=== PATIENT | female | born 1940 | race Caucasian/White ===

== ENCOUNTER 2016-10-23 12:29 | Observation (INO) | payer OTHER ==
[~2016-10-23] VITALS: Ht 156.2 cm; Wt 53.8 kg
[~2016-10-23 12:29] MED LIST: ASPIRIN325 MG PO; AZITHROMYCIN500 M1 PO; COMBIVENT RESPIM4 GM IH; HYDROCHLOROTH12.5 M3 PO; HYDROCHLOROTHIA25 MG PO; LIPITOR20 MG PO; LIPITOR40 MG PO; LISINOPRIL20 MG PO; METOPROLOL TART50 MG PO; PREDNISONE5 MG PO
[2016-10-23 13:17] LABS: HEMATOCRIT 45.4 % (36.0-46.0); MCH 30.1 PG (29.0-34.0); MCHC 32.6 G/DL (30.0-36.0); MCV 92.3 FL (83-99); MEAN PLAT.VOLUME 9.2 uM^3 (9.5-12.4); PLATELET COUNT 276 K/uL (156-360); RBC DIS.WIDTH-CV 13.3 % (11.8-14.6); RBC DIS.WIDTH-SD 45.2 % (39-53); RED BLOOD COUNT 4.92 M/uL (3.80-5.20); WHITE BLOOD COUNT 8.6 K/uL (4.1-10.2)
[2016-10-23 13:26] LABS: CHLORIDE 107 mEq/L (99-109); SODIUM 139 mEq/L (136-147)
[2016-10-23 13:27] LABS: GLUCOSE 97 mg/dL (70-99)
[2016-10-23 13:29] LABS: ANION GAP 10 MEQ/L (2-14)
[2016-10-23 13:31] LABS: GFR ESTIMATE (CALCULATED) > 59 mL/min/
[2016-10-23 13:32] LABS: UREA NITROGEN (BUN) 20 mg/dL (9-23)
[2016-10-23 13:41] LABS: TROP-I INTERPRETATION NEGATIVE; TROPONIN-I < 0.01 ng/mL (0.0-0.30)
[2016-10-23] MEDS ORDERED: LO-DOSE ASPIRIN81 M1 PO (17:17)
[2016-10-23 17:45] VITALS: BP 162/71
[2016-10-23 19:46] LABS: C DIFF TOXIN NEGATIVE (NEGATIVE)
[2016-10-23 20:13] LABS: TROP-I INTERPRETATION NEGATIVE; TROPONIN-I < 0.01 ng/mL (0.0-0.30)
[2016-10-23 20:18] LABS: PROBE CHECK PASS; SPECIMEN PROCESSING CONTROL PASS
[2016-10-23 21:57] VITALS: BP 135/65
[2016-10-24 02:46] LABS: TROP-I INTERPRETATION NEGATIVE; TROPONIN-I < 0.01 ng/mL (0.0-0.30)
[2016-10-24 03:49] VITALS: BP 117/58
[2016-10-24] MEDS ORDERED: NITROSTAT0.4 MG SL (09:00)
[2016-10-24 09:14] VITALS: BP 124/60
== END 2016-10-24 11:00 | disposition home or self-care (01) ==
LOC: EME 12:29 → EDOF 16:59 → 5WEST 16:59 → EDOF 16:59 → ENRESERV 17:05 → 5WEST 17:42
PROVIDERS: Internal Medicine
DX: R07.9 Chest pain, unspecified (principal); I25.10 Atherosclerotic heart disease of native coronary artery without angina pectoris; Z95.5 Presence of coronary angioplasty implant and graft; R11.2 Nausea with vomiting, unspecified; R19.7 Diarrhea, unspecified; I10 Essential (primary) hypertension; E78.5 Hyperlipidemia, unspecified; F17.200 Nicotine dependence, unspecified, uncomplicated; Z86.010 Personal history of colon polyps; Z90.710 Acquired absence of both cervix and uterus; Z90.49 Acquired absence of other specified parts of digestive tract; Z82.49 Family history of ischemic heart disease and other diseases of the circulatory system; Z80.3 Family history of malignant neoplasm of breast
CPT/HCPCS: 71020; 80048; 84484; 85027; 87493; 87506; 93005; 99202; 99281; 99285; G0378; J7030; S0028